=== PATIENT | female | born 1945 | race African-American/Black ===

== ENCOUNTER 2025-05-26 11:40 | Emergency (ER) | payer MEDICARE ==
[~2025-05-26] VITALS: Ht 162.6 cm; Wt 76.8 kg
[2025-05-26 11:46] VITALS: BP 122/54; PULSE 88; RESP 16; TEMP 98.2; O2SAT 100
[2025-05-26] MEDS: KETOROLAC TROMETHAMINE 30 MG/ML VIAL IM ONE (14:10)
[2025-05-26] MEDS: LIDOCAINE 5% TRANSDERMAL PATCH TD ONE (14:10)
== END 2025-05-26 15:29 | disposition home or self-care (01) ==
LOC: EMS 11:40
DX: M25.551 Pain in right hip (principal); I10 Essential (primary) hypertension; Z96.643 Presence of artificial hip joint, bilateral; Z87.891 Personal history of nicotine dependence
CPT/HCPCS: 99283; 73502; 96372; J1885